=== PATIENT | male | born 1970 | race Caucasian/White ===

== ENCOUNTER 2019-04-18 02:45 | Emergency (ER) | payer OTHER ==
[2019-04-18 03:20] VITALS: TEMP 98.2
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
[2019-04-18 04:44] VITALS: BP 117/58; PULSE 87; RESP 18
== END 2019-04-18 04:44 | disposition short-term general hospital (02) ==
LOC: EC 02:45
DX: Z02.83 Encounter for blood-alcohol and blood-drug test (principal); F17.200 Nicotine dependence, unspecified, uncomplicated; Z53.20 Procedure and treatment not carried out because of patient's decision for unspecified reasons
CPT/HCPCS: 99284

== ENCOUNTER → 2020-11-16 | Outpatient (CLI) | payer OTHER ==
--- NOTE | 2020-11-16 09:51 | XR ---
EXAMINATION TYPE: XR thoracic spine complete DATE OF EXAM: 11/16/2020 COMPARISON: NONE HISTORY: pain TECHNIQUE: 3 views submitted FINDINGS: Alignment is anatomic. There is no compression deformities. Curvature the spinal hypertrophic and de generative changes. Suggestion of granuloma within the lungs. IMPRESSION: 1. Multilevel moderate to severe degenerative disc disease.
== END | disposition home or self-care (01) ==
LOC: RADXRMAIN 09:06
PROVIDERS: ATTEND Nurse Practitioner
DX: M51.34 Other intervertebral disc degeneration, thoracic region (principal)
CPT/HCPCS: 72072